=== PATIENT | male | born 1975 | race Caucasian/White ===

== ENCOUNTER 2016-12-12 22:03 | Emergency (ER) | payer MEDICAID, OTHER, SELFPAY ==
[~2016-12-12] VITALS: Ht 193 cm; Wt 107.7 kg
[2016-12-12 22:18] VITALS: BP 145/90
[2016-12-12] MEDS ORDERED: KETOROLAC 30 MG/1 ML ONE (22:40)
[2016-12-12] MEDS ORDERED: KETOROLAC 30 MG/1 ML IM ONE (23:00)
== END 2016-12-12 23:07 | disposition home or self-care (01) ==
LOC: ED 22:45
DX: M70.71 Other bursitis of hip, right hip (principal); Y93.89 Activity, other specified
CPT/HCPCS: 96372; 99283; J1885

== ENCOUNTER 2017-12-23 11:54 | Emergency (ER) | payer MEDICAID ==
[~2017-12-23] VITALS: Ht 193 cm; Wt 109.5 kg
[2017-12-23 12:00] VITALS: BP 138/100
[2017-12-23] MEDS ORDERED: HYDROcodone/APAP 5/325 TABLET ONE (12:22)
[2017-12-23] MEDS ORDERED: HYDROcodone/APAP 5/325 TABLET PO ONE (12:30)
== END 2017-12-23 13:47 | disposition home or self-care (01) ==
LOC: ED 13:36
DX: S60.212A Contusion of left wrist, initial encounter (principal); W20.8XXA Other cause of strike by thrown, projected or falling object, initial encounter; Y93.89 Activity, other specified; Y99.8 Other external cause status; Y92.89 Other specified places as the place of occurrence of the external cause
CPT/HCPCS: 29105; 99284

== ENCOUNTER 2019-09-11 17:07 | Emergency (ER) | payer MEDICAID ==
[~2019-09-11] VITALS: Ht 193 cm; Wt 104.3 kg
[2019-09-11 17:10] VITALS: BP 130/87
--- NOTE | 2019-09-11 19:03 | NUR ---
PT NIL X1
--- NOTE | 2019-09-11 19:21 | NUR ---
[id number]
--- NOTE | 2019-09-11 20:21 | NUR ---
NOT IN LOBBY X3
== END 2019-09-11 20:38 ==
LOC: ED 20:32
DX: T24.002A Burn of unspecified degree of unspecified site of left lower limb, except ankle and foot, initial encounter (principal); Z53.21 Procedure and treatment not carried out due to patient leaving prior to being seen by health care provider; X58.XXXA Exposure to other specified factors, initial encounter; Y93.89 Activity, other specified; Y92.89 Other specified places as the place of occurrence of the external cause; Y99.8 Other external cause status